=== PATIENT | male | born 1940 | race Caucasian/White ===

== ENCOUNTER 2020-02-22 18:43 | Inpatient (IN) | payer OTHER ==
[~2020-02-22 18:43] MED LIST: Iopamidol-370 76% 500 ML 1 ML ONE
[2020-02-22] MEDS ORDERED: Adacel (T-DAP) 0.5 ML SYRINGE ONE (19:01)
[2020-02-22] MEDS ORDERED: Morphine 4 MG/ML VIAL ONE (19:01)
[2020-02-22] MEDS ORDERED: Lidocaine 1% w/Epinephrine 1:100K 20 ML VIAL ONE (19:03)
[2020-02-22 19:16] LABS: #Basophils 0.1 thou/uL (0.0-0.2); #Eosinphils 0.4 thou/uL (0.0-0.7); #Monocytes 0.8 thou/uL (0.11-0.59); #Neutrophils 14.2 thou/uL (1.40-6.50); %Basophils 0.6 % (0.0-1.0); %Eosinophils 2.2 % (0.0-10.0); %Lymphocytes 11.6 % (21.0-51.0); %Monocytes 4.6 % (0.0-10.0); Hemoglobin 14.7 g/dL (14.0-18.0); Mean Corpuscular HGB CONC 33.2 g/dL (32.0-36.0); Mean Corpuscular Hemoglobin 33.2 pg (27.0-31.0); Mean Platelet Volume 8.3 fL (7.4-10.4); Platelet Count 161 thou/uL (130-400); RBC Distribution Width 12.3 % (11.5-14.5); Red Blood Cell (RBC) Count 4.41 mill/uL (4.70-6.10); White Blood Cell (WBC) Count 17.6 thou/uL (4.8-10.8)
[2020-02-22 19:22] LABS: INR-International Normal Ratio 1.1; PTT 27.7 SEC (22.9-36.1); Prothrombin Time 14.1 SEC (12.0-14.7)
--- NOTE | 2020-02-22 19:22 | RAD ---
Exam: One view pelvis HISTORY: Trauma. Pain. Injury. FINDINGS: Sacroiliac joints are patent and symmetric. Sacral ala are preserved. Intact bony pelvis Symmetric hip joint spaces. Contour of both femoral heads are maintained. Obturator rings are intact. IMPRESSION: No radiographic evidence of fracture.
[2020-02-22 19:24] LABS: ALT (SGPT) 30 U/L (8-55); AST (SGOT) 44 U/L (5-34); Albumin 3.7 g/dL (3.4-4.8); Alkaline Phosphatase 104 U/L (40-110); Anion Gap 16 mmol/L (10-20); BUN (Urea Nitrogen) 30 mg/dL (8.4-25.7); Bilirubin, Total 1.3 mg/dL (0.2-1.2); Calc. Creatinine Clearance 0 mL/min (70-130); Calcium 8.9 mg/dL (7.8-10.44); Carbon Dioxide 16 mmol/L (23-31); Chloride 111 mmol/L (98-107); Estimated GFR-MDRD 20; Globulin 2.9 g/dL (2.4-3.5); Glucose 193 mg/dL (83-110); Potassium 4.4 mmol/L (3.5-5.1); Protein, Total 6.6 g/dL (5.8-8.1); Sodium 139 mmol/L (136-145)
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
[2020-02-22 19:59] LABS: CKMB 19.4 ng/mL (0-6.6)
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
[2020-02-22 20:22] LABS: Bilirubin Negative (Negative); Blood, Urine 2+ (Negative); Clarity Turbid (Clear); Glucose, Urine (Dipstick) 30 mg/dL (Negative); Leukocyte 500 Leu/uL (Negative); Nitrite 2+ (Negative); Protein, Urine (Dipstick) 300 mg/dL (Neg-Trace); RBC/HPF Greater than 50 HPF (0-3); Squamous Epithelial 0-3 HPF (0-3); Urobilinogen Normal mg/dL (Less than 2); WBC/HPF Greater than 50 HPF (0-3)
[2020-02-22 20:23] LABS: Bacteria/HPF 3+ HPF (None Seen)
--- NOTE | 2020-02-22 20:52 | RAD ---
Exam:Right hand 2 views HISTORY: Trauma. Pain. COMPARISON: None FINDINGS: Dorsal soft tissue swelling. Based upon the images provided, no definite fracture. IMPRESSION: Dorsal soft tissue swelling. No definite fracture. Additional imaging if clinically warra nted.
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
[2020-02-22 21:48] LABS: Magnesium 1.7 mg/dL (1.6-2.6); Phosphorus 3.3 mg/dL (2.3-4.7)
[2020-02-22] MEDS ORDERED: Dextrose 5% in Water 1,000 ML IV PRN (22:42)
[2020-02-22] MEDS ORDERED: Morphine 2 MG/ML SYRINGE SLOW IVP PRN (22:42)
[2020-02-22] MEDS ORDERED: Ondansetron PF 4 MG/2 ML Vial IVP PRN (22:42)
[2020-02-22] MEDS ORDERED: Dextrose 50% Abboject 50 ML SYRINGE SLOW IVP PRN (22:42)
[2020-02-22] MEDS ORDERED: Ondansetron ODT 4 MG TAB PO PRN (22:42)
[2020-02-22] MEDS ORDERED: hydrALAZINE 20 MG/ML VIAL SLOW IVP PRN (22:42)
[2020-02-22] MEDS ORDERED: Sodium Chloride 0.9% 1,000 ML IV SCH (23:15)
[2020-02-23 00:11] LABS: CKMB 66.8 ng/mL (0-6.6)
[2020-02-23 00:27] VITALS: BMI 23.1
[2020-02-23 02:58] LABS: #Lymphocytes 0.5 thou/uL (1.20-3.40); #Monocytes 1.1 thou/uL (0.11-0.59); #Neutrophils 17.4 thou/uL (1.40-6.50); %Eosinophils 0.1 % (0.0-10.0); %Lymphocytes 2.5 % (21.0-51.0); %Monocytes 5.9 % (0.0-10.0); %Neutrophils 91.5 % (42.0-75.0); Hemoglobin 12.4 g/dL (14.0-18.0); Mean Corpuscular HGB CONC 32.8 g/dL (32.0-36.0); Mean Corpuscular Hemoglobin 32.3 pg (27.0-31.0); Mean Corpuscular Volume 98.5 fL (78.0-98.0); Mean Platelet Volume 8.1 fL (7.4-10.4); Platelet Count 115 thou/uL (130-400); Platelet Morphology Comment Appears Decreased; RBC Distribution Width 12.3 % (11.5-14.5); Red Blood Cell (RBC) Count 3.86 mill/uL (4.70-6.10)
[2020-02-23 03:03] LABS: Phosphorus 3.3 mg/dL (2.3-4.7)
[2020-02-23 03:04] LABS: Anion Gap 17 mmol/L (10-20); BUN (Urea Nitrogen) 32 mg/dL (8.4-25.7); Calc. Creatinine Clearance 18 mL/min (70-130); Calcium 8.3 mg/dL (7.8-10.44); Carbon Dioxide 18 mmol/L (23-31); Chloride 112 mmol/L (98-107); Estimated GFR-MDRD 19; Glucose 203 mg/dL (83-110); Magnesium 1.6 mg/dL (1.6-2.6); Potassium 4.6 mmol/L (3.5-5.1); Sodium 142 mmol/L (136-145)
[2020-02-23 03:26] LABS: CKMB 62.1 ng/mL (0-6.6); Critical Call CKMB RESULT DECREASING
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
[2020-02-23] MEDS ORDERED: Acetaminophen 500 MG TAB PO SCH (06:45)
[2020-02-23] MEDS ORDERED: Magnesium 2 GM/50 ML 2 GM in Premix Bag 1 BAG IVPB SCH (06:45)
[2020-02-23] MEDS: Famotidine/PF 20 mg/2ml Vial SLOW IVP SCH (07:43)
--- NOTE | 2020-02-23 08:03 | CT ---
PRELIMINARY REPORT/DIRECT RADIOLOGY/EMERGENCY AFTER HOURS PROCEDURE This report was discussed with alan ruth RN by Johan Almanzar on Feb 23, 2020 04:31:00 CDT. Addendum electronically signed by Johan Almanzar on February 23, 2020 4:33:00 AM CDT EXAM: CT Head Without Intravenous Contrast. CLINICAL HISTORY: F/U EVAL ICH TECHNIQUE: Axial computed tomography images of the head/brain without intravenous contrast. COMPARISON: None provided. FINDINGS: BRAIN: Again seen in the small focus of hemorrhage along the left parafalcine region. There is new li near subarachnoid hemorrhage in the right central sulcus and left precentral sulcus (series 2, image [id number]). There are small bilateral extra-axial isodense fluid collections overlying the frontal lobes which ar e new compared to prior. There is no significant midline shift. Stable focus of encephalomalacia in t he right frontal lobe, unchanged from prior. VENTRICLES: There is layering fluid within the occipital horn of the right lateral ventricle which is new compared to prior as well as the previously seen focus of hyperdensity along the body of the rig ht lateral ventricle. ORBITS: Status post bilateral lens replacements SOFT TISSUES: Small extra-axial soft-tissue hematomas overlying the right greater the left frontal hiren marco. BONES: Again seen are fractures of the maxillary sinuses and pterygoid plates with near complete opac ification of the left maxillary sinus and layering fluid in the right maxillary sinus, similar to amber or. Partially imaged nasal bone fractures. IMPRESSION: New small amount of subarachnoid hemorrhage within the right central sulcus and left prec entral sulcus. New small bilateral extra-axial isodense fluid collections overlying the frontal lobes , not seen on the prior CT. Layering fluid within the occipital horn of the right lateral ventricle, new from prior. No hydrocephalus. Previously seen foci of hemorrhage in the left parafalcine region and in the body of the right lateral ventricle are stable from prior. Fractures of the maxillary sinu s, pterygoid plates and nasal bones are unchanged from prior. Near-complete opacification of the lef t maxillary sinus and layering fluid in the right maxillary sinus, similar to prior. ELECTRONICALLY SIGNED BY: Keyla Hernandez MD Feb 23, 2020 4:23:55 AM CDT FINAL REPORT I agree with the preliminary report provided. There has been further development of the subdural hem orrhages overlying the frontal and parietal convexities. Slightly more pronounced subarachnoid hemor rhage is seen within a sulcus of the left and right frontal convexities. There is slightly more pron ounced subdural hematoma within the parafalcine region, near the vertex. A small amount of intravent ricular hemorrhage within the right lateral ventricle adjacent to the right caudate body is stable-ap pearing. There is slightly more layered intraventricular hemorrhage within the posterior horn of the right lateral ventricle. Basilar cisterns remain patent. No midline shift or hydrocephalus is evid ent. Generalized cerebral and cerebellar atrophy with chronic small-vessel white matter ischemic rangel nge is similar-appearing. Comminuted fractures involving the maxilla are similar-appearing. POS: BH
[2020-02-23] MEDS: Carvedilol 3.125 MG TAB PO SCH ×2 (08:07→20:54)
[2020-02-23] MEDS: Multivitamin W/ Minerals 1 TAB PO SCH (08:08)
[2020-02-23 08:34] LABS: CKMB 49.1 ng/mL (0-6.6)
[2020-02-23] MEDS ORDERED: Prevnar 13-Val Conj/PF 0.5 ML SYRINGE IM ONE (09:00)
[2020-02-23] MEDS: Sodium Bicarbonate 150 MEQ in Dextrose 5% in Water 1,000 ML IV SCH ×2 (10:19→20:54)
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
[2020-02-23 11:22] LABS: Troponin I 1.205 ng/mL (< 0.028)
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
[2020-02-23] MEDS: Acetaminophen 500 MG TAB PO SCH ×2 (12:25→18:12)
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
--- NOTE | 2020-02-23 17:19 | PRG ---
DATE OF SERVICE: 02/23/2020 ADDENDUM: ADDITIONAL IMPRESSION: Acute on chronic kidney injury. This may very well have been exacerbated by contrast nephropathy. PLAN: The patient will be started on a bicarbonate infusion and monitor renal function as endpoint. Job ID: [id number]
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
[2020-02-23] MEDS: Bacitracin 1 PK TOP SCH (20:24)
[2020-02-23] MEDS: Sulfameth/Trimethoprim DS 800-160mg TAB PO SCH (20:27)
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
[2020-02-24] MEDS: Acetaminophen 500 MG TAB PO SCH ×4 (00:56→17:36)
[2020-02-24 04:48] LABS: Anion Gap 14 mmol/L (10-20); BUN (Urea Nitrogen) 50 mg/dL (8.4-25.7); CK (CPK) 1238 U/L (30-200); Calc. Creatinine Clearance 16 mL/min (70-130); Carbon Dioxide 22 mmol/L (23-31); Chloride 107 mmol/L (98-107); Estimated GFR-MDRD 17; Glucose 140 mg/dL (83-110); Magnesium 2.2 mg/dL (1.6-2.6); Potassium 4.3 mmol/L (3.5-5.1); Sodium 139 mmol/L (136-145)
[2020-02-24 05:20] LABS: Band 12 % (5-11); Lymphocytes 6 % (21-51); MDiff Complete? YES; Macrocytosis SLIGHT = 6-15 cells (100X) (0-5/hpf); Mean Corpuscular HGB CONC 32.1 g/dL (32.0-36.0); Mean Corpuscular Hemoglobin 31.9 pg (27.0-31.0); Mean Corpuscular Volume 99.3 fL (78.0-98.0); Mean Platelet Volume 8.7 fL (7.4-10.4); Monocytes 3 % (0-10); Neutrophil 79 % (42-75); Platelet Count 92 thou/uL (130-400); Platelet Morphology Comment Appears Decreased; RBC Distribution Width 12.3 % (11.5-14.5); Red Blood Cell (RBC) Count 2.82 mill/uL (4.70-6.10)
[2020-02-24] MEDS: Sodium Bicarbonate 150 MEQ in Dextrose 5% in Water 1,000 ML IV SCH ×2 (07:54→20:53)
[2020-02-24] MEDS: Sulfameth/Trimethoprim DS 800-160mg TAB PO SCH (07:55)
[2020-02-24] MEDS: Famotidine/PF 20 mg/2ml Vial SLOW IVP SCH (07:55)
[2020-02-24] MEDS: Bacitracin 1 PK TOP SCH ×2 (07:55→20:57)
[2020-02-24] MEDS: Carvedilol 3.125 MG TAB PO SCH ×2 (07:55→20:57)
[2020-02-24] MEDS: Multivitamin W/ Minerals 1 TAB PO SCH (07:56)
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
[2020-02-24 14:41] LABS: Hemoglobin 8.8 g/dL (14.0-18.0); Mean Corpuscular HGB CONC 33.1 g/dL (32.0-36.0); Mean Corpuscular Hemoglobin 32.8 pg (27.0-31.0); Mean Corpuscular Volume 99.2 fL (78.0-98.0); Mean Platelet Volume 8.6 fL (7.4-10.4); Platelet Count 90 thou/uL (130-400); RBC Distribution Width 12.3 % (11.5-14.5); Red Blood Cell (RBC) Count 2.67 mill/uL (4.70-6.10); White Blood Cell (WBC) Count 10.6 thou/uL (4.8-10.8)
[2020-02-24 15:04] LABS: Band 10 % (5-11); Lymphocytes 8 % (21-51); MDiff Complete? YES; Monocytes 3 % (0-10); Neutrophil 79 % (42-75)
[2020-02-24 15:07] LABS: Anion Gap 16 mmol/L (10-20); BUN (Urea Nitrogen) 52 mg/dL (8.4-25.7); Calc. Creatinine Clearance 16 mL/min (70-130); Carbon Dioxide 25 mmol/L (23-31); Chloride 103 mmol/L (98-107); Estimated GFR-MDRD 16; Glucose 167 mg/dL (83-110); Magnesium 2.3 mg/dL (1.6-2.6); Phosphorus 3.9 mg/dL (2.3-4.7); Potassium 4.1 mmol/L (3.5-5.1); Sodium 140 mmol/L (136-145)
[2020-02-24] MEDS: Sulfameth/Trimethoprim SS 400-80MG TAB PO SCH (20:57)
[2020-02-25] MEDS: Acetaminophen 500 MG TAB PO SCH ×5 (00:35→23:44)
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
[2020-02-25 04:16] LABS: #Eosinphils 0.4 thou/uL (0.0-0.7); #Lymphocytes 0.8 thou/uL (1.20-3.40); #Monocytes 0.7 thou/uL (0.11-0.59); %Basophils 0.3 % (0.0-1.0); %Eosinophils 4.4 % (0.0-10.0); %Lymphocytes 8.9 % (21.0-51.0); %Monocytes 7.6 % (0.0-10.0); %Neutrophils 78.9 % (42.0-75.0); Hemoglobin 8.1 g/dL (14.0-18.0); Mean Corpuscular HGB CONC 33.6 g/dL (32.0-36.0); Mean Corpuscular Hemoglobin 32.6 pg (27.0-31.0); Mean Platelet Volume 8.7 fL (7.4-10.4); Platelet Count 85 thou/uL (130-400); RBC Distribution Width 12.1 % (11.5-14.5); Red Blood Cell (RBC) Count 2.48 mill/uL (4.70-6.10); White Blood Cell (WBC) Count 8.9 thou/uL (4.8-10.8)
[2020-02-25 04:23] LABS: Anion Gap 13 mmol/L (10-20); BUN (Urea Nitrogen) 50 mg/dL (8.4-25.7); Calc. Creatinine Clearance 16 mL/min (70-130); Calcium 7.8 mg/dL (7.8-10.44); Carbon Dioxide 31 mmol/L (23-31); Chloride 100 mmol/L (98-107); Estimated GFR-MDRD 16; Glucose 160 mg/dL (83-110); Magnesium 2.3 mg/dL (1.6-2.6); Phosphorus 3.6 mg/dL (2.3-4.7); Potassium 3.7 mmol/L (3.5-5.1); Sodium 140 mmol/L (136-145)
[2020-02-25] MEDS: Sodium Bicarbonate 150 MEQ in Dextrose 5% in Water 1,000 ML IV SCH (08:07)
[2020-02-25] MEDS: Sulfameth/Trimethoprim SS 400-80MG TAB PO SCH (08:15)
[2020-02-25] MEDS: Bacitracin 1 PK TOP SCH ×2 (08:15→20:09)
[2020-02-25] MEDS: Carvedilol 3.125 MG TAB PO SCH ×2 (08:15→20:09)
[2020-02-25] MEDS: Famotidine 20 MG TAB PO SCH (08:15)
[2020-02-25] MEDS: Multivitamin W/ Minerals 1 TAB PO SCH (08:15)
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
[2020-02-25 13:40] LABS: Bilirubin Negative (Negative); Blood, Urine 1+ (Negative); Clarity Clear (Clear); Glucose, Urine (Dipstick) Normal (Negative); Leukocyte 500 Leu/uL (Negative); Nitrite Negative (Negative); Protein, Urine (Dipstick) 200 mg/dL (Neg-Trace); Squamous Epithelial None Seen HPF (0-3); Urobilinogen Normal mg/dL (Less than 2); WBC/HPF Greater than 50 HPF (0-3)
[2020-02-25 13:43] LABS: Bacteria/HPF 1+ HPF (None Seen)
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
[2020-02-25] MEDS: Ferrous Sulfate 325 MG TAB PO SCH (17:21)
[2020-02-25] MEDS ORDERED: cefTRIAXone\\ROCEPHIN 1 GM in Sodium Chloride 0.9% 100 ML IVPB SCH (17:30)
[2020-02-25] MEDS: Ascorbic Acid 500 mg Chewable Tablet PO SCH (20:09)
[2020-02-25] MEDS: Tamsulosin HCl 0.4 MG CAP PO SCH (20:09)
[2020-02-25] MEDS: Senokot S 8.6-50 MG TAB PO SCH (20:09)
[2020-02-25] MEDS ORDERED: Tamsulosin HCl 0.4 MG CAP PO SCH (21:00)
[2020-02-26] MEDS ORDERED: Insulin Regular 300 UNITS/3 ML VIAL SC PRN ×2 (01:34)
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
[2020-02-26] MEDS: Acetaminophen 500 MG TAB PO SCH ×4 (05:28→23:37)
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
[2020-02-26 07:38] LABS: Anion Gap 13 mmol/L (10-20); BUN (Urea Nitrogen) 45 mg/dL (8.4-25.7); Calc. Creatinine Clearance 17 mL/min (70-130); Calcium 8.2 mg/dL (7.8-10.44); Carbon Dioxide 31 mmol/L (23-31); Chloride 101 mmol/L (98-107); Estimated GFR-MDRD 17; Glucose 142 mg/dL (83-110); Potassium 3.7 mmol/L (3.5-5.1); Sodium 141 mmol/L (136-145)
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
[2020-02-26] MEDS: Finasteride 5 MG TAB PO SCH (08:41)
[2020-02-26] MEDS: Ascorbic Acid 500 mg Chewable Tablet PO SCH ×2 (08:41→21:15)
[2020-02-26] MEDS: Tamsulosin HCl 0.4 MG CAP PO SCH ×2 (08:41→21:15)
[2020-02-26] MEDS: Multivitamin W/ Minerals 1 TAB PO SCH (08:41)
[2020-02-26] MEDS: Carvedilol 3.125 MG TAB PO SCH ×2 (08:41→21:15)
[2020-02-26] MEDS: Senokot S 8.6-50 MG TAB PO SCH ×2 (08:42→21:15)
[2020-02-26] MEDS: Polyethylene Glycol 3350 17 GM Packet PO SCH (08:43)
[2020-02-26] MEDS: Famotidine 20 MG TAB PO SCH (08:43)
[2020-02-26] MEDS: Gabapentin 100 MG CAP PO PRN (08:43)
[2020-02-26] MEDS: Ferrous Sulfate 325 MG TAB PO SCH ×2 (08:43→17:51)
[2020-02-26] MEDS: traMADol HCl 50 MG TAB PO PRN (08:44)
[2020-02-26] MEDS: Bacitracin 1 PK TOP SCH ×2 (08:45→21:15)
[2020-02-26] MEDS: Heparin 5,000 UNITS/ML VIAL SC SCH ×2 (08:45→21:16)
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
--- NOTE | 2020-02-26 14:15 | EKG ---
Test Reason : Blood Pressure : / mmHG Vent. Rate : 093 BPM Atrial Rate : 093 BPM P-R Int : 194 ms QRS Dur : 112 ms QT Int : 388 ms P-R-T Axes : 066 -61 098 degrees QTc Int : 482 ms Sinus rhythm with Premature atrial complexes Left axis deviation Inferior infarct , age undetermined Anterior infarct , age undetermined Abnormal ECG Confirmed by LUCAS THOMPSON DO ([id number]), assignment desk editor ZULEYMA SONG ([id number]) on 02/26/2020 2:15:25 PM Referred By: Confirmed By:LUCAS THOMPSON DO
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
[2020-02-26] MEDS ORDERED: cefTRIAXone\\ROCEPHIN 1 GM in Sodium Chloride 0.9% 100 ML IVPB SCH ×2 (18:00→20:00)
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
[2020-02-27] MEDS: traMADol HCl 50 MG TAB PO PRN (03:52)
[2020-02-27] MEDS: Acetaminophen 500 MG TAB PO SCH ×4 (05:34→23:28)
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
[2020-02-27] MEDS ORDERED: cefTRIAXone\\ROCEPHIN 1 GM in Sodium Chloride 0.9% 100 ML IVPB SCH (08:30)
[2020-02-27] MEDS ORDERED: Cefdinir 300 MG CAP PO SCH (09:00)
[2020-02-27] MEDS: Ferrous Sulfate 325 MG TAB PO SCH ×2 (09:07→17:35)
[2020-02-27] MEDS: Famotidine 20 MG TAB PO SCH (09:08)
[2020-02-27] MEDS: Multivitamin W/ Minerals 1 TAB PO SCH (09:08)
[2020-02-27] MEDS: Bacitracin 1 PK TOP SCH ×2 (09:08→20:33)
[2020-02-27] MEDS: Ascorbic Acid 500 mg Chewable Tablet PO SCH ×2 (09:08→20:32)
[2020-02-27] MEDS: Cefdinir 300 MG CAP PO SCH (09:10)
[2020-02-27] MEDS: Finasteride 5 MG TAB PO SCH (09:11)
[2020-02-27] MEDS: Gabapentin 100 MG CAP PO PRN (09:11)
[2020-02-27] MEDS: Tamsulosin HCl 0.4 MG CAP PO SCH ×2 (09:11→20:32)
[2020-02-27] MEDS: Polyethylene Glycol 3350 17 GM Packet PO SCH (09:11)
[2020-02-27] MEDS: Senokot S 8.6-50 MG TAB PO SCH ×2 (09:11→20:33)
[2020-02-27] MEDS: Heparin 5,000 UNITS/ML VIAL SC SCH ×2 (09:12→20:33)
[2020-02-27] MEDS: Carvedilol 3.125 MG TAB PO SCH ×2 (09:12→20:33)
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
[2020-02-28 04:54] LABS: #Eosinphils 0.4 thou/uL (0.0-0.7); #Lymphocytes 0.9 thou/uL (1.20-3.40); #Monocytes 0.6 thou/uL (0.11-0.59); #Neutrophils 5.9 thou/uL (1.40-6.50); %Basophils 0.1 % (0.0-1.0); %Eosinophils 4.6 % (0.0-10.0); %Lymphocytes 11.4 % (21.0-51.0); %Monocytes 7.2 % (0.0-10.0); %Neutrophils 76.6 % (42.0-75.0); Hemoglobin 8.5 g/dL (14.0-18.0); Mean Corpuscular HGB CONC 32.5 g/dL (32.0-36.0); Mean Corpuscular Hemoglobin 32.5 pg (27.0-31.0); Mean Platelet Volume 8.9 fL (7.4-10.4); Platelet Count 146 thou/uL (130-400); RBC Distribution Width 12.4 % (11.5-14.5); Red Blood Cell (RBC) Count 2.62 mill/uL (4.70-6.10); White Blood Cell (WBC) Count 7.7 thou/uL (4.8-10.8)
[2020-02-28 05:11] LABS: Phosphorus 2.3 mg/dL (2.3-4.7)
[2020-02-28 05:13] LABS: Anion Gap 12 mmol/L (10-20); BUN (Urea Nitrogen) 52 mg/dL (8.4-25.7); Calc. Creatinine Clearance 18 mL/min (70-130); Calcium 8.6 mg/dL (7.8-10.44); Carbon Dioxide 28 mmol/L (23-31); Chloride 103 mmol/L (98-107); Estimated GFR-MDRD 19; Glucose 157 mg/dL (83-110); Magnesium 2.3 mg/dL (1.6-2.6); Potassium 3.9 mmol/L (3.5-5.1); Sodium 139 mmol/L (136-145)
[2020-02-28] MEDS: Acetaminophen 500 MG TAB PO SCH ×4 (06:12→23:16)
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
[2020-02-28] MEDS: Ferrous Sulfate 325 MG TAB PO SCH ×2 (09:08→18:36)
[2020-02-28] MEDS: Tamsulosin HCl 0.4 MG CAP PO SCH ×2 (09:08→21:21)
[2020-02-28] MEDS: Cefdinir 300 MG CAP PO SCH (09:08)
[2020-02-28] MEDS: Famotidine 20 MG TAB PO SCH (09:08)
[2020-02-28] MEDS: Bacitracin 1 PK TOP SCH ×2 (09:09→21:21)
[2020-02-28] MEDS: Finasteride 5 MG TAB PO SCH (09:09)
[2020-02-28] MEDS: Ascorbic Acid 500 mg Chewable Tablet PO SCH ×2 (09:09→21:22)
[2020-02-28] MEDS: Carvedilol 3.125 MG TAB PO SCH ×2 (09:09→21:21)
[2020-02-28] MEDS: Heparin 5,000 UNITS/ML VIAL SC SCH ×2 (09:09→21:21)
[2020-02-28] MEDS: Senokot S 8.6-50 MG TAB PO SCH ×2 (09:09→21:22)
[2020-02-28] MEDS: Multivitamin W/ Minerals 1 TAB PO SCH (09:09)
[2020-02-28] MEDS: Polyethylene Glycol 3350 17 GM Packet PO SCH (09:10)
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
[2020-02-28] MEDS: Gabapentin 100 MG CAP PO PRN (21:21)
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
[2020-02-29] MEDS: Acetaminophen 500 MG TAB PO SCH ×3 (05:17→18:41)
[2020-02-29 08:04] LABS: Anion Gap 16 mmol/L (10-20); BUN (Urea Nitrogen) 51 mg/dL (8.4-25.7); Calc. Creatinine Clearance 20 mL/min (70-130); Calcium 8.6 mg/dL (7.8-10.44); Carbon Dioxide 23 mmol/L (23-31); Chloride 106 mmol/L (98-107); Estimated GFR-MDRD 22; Glucose 147 mg/dL (83-110); Potassium 4.2 mmol/L (3.5-5.1); Sodium 141 mmol/L (136-145)
[2020-02-29] MEDS: Tamsulosin HCl 0.4 MG CAP PO SCH ×2 (08:12→20:12)
[2020-02-29] MEDS: Ferrous Sulfate 325 MG TAB PO SCH ×2 (08:12→18:40)
[2020-02-29] MEDS: Famotidine 20 MG TAB PO SCH (08:12)
[2020-02-29] MEDS: Finasteride 5 MG TAB PO SCH (08:13)
[2020-02-29] MEDS: Ascorbic Acid 500 mg Chewable Tablet PO SCH ×2 (08:13→20:13)
[2020-02-29] MEDS: Senokot S 8.6-50 MG TAB PO SCH ×2 (08:13→20:13)
[2020-02-29] MEDS: Carvedilol 3.125 MG TAB PO SCH ×2 (08:13→20:13)
[2020-02-29] MEDS: Cefdinir 300 MG CAP PO SCH (08:13)
[2020-02-29] MEDS: Multivitamin W/ Minerals 1 TAB PO SCH (08:13)
[2020-02-29] MEDS: Bacitracin 1 PK TOP SCH ×2 (08:13→20:13)
[2020-02-29] MEDS: Heparin 5,000 UNITS/ML VIAL SC SCH ×2 (08:17→20:13)
[2020-02-29] MEDS: Polyethylene Glycol 3350 17 GM Packet PO SCH (08:17)
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
[2020-02-29] MEDS: Gabapentin 100 MG CAP PO PRN (20:13)
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
[2020-03-01] MEDS: Acetaminophen 500 MG TAB PO SCH ×4 (01:06→17:16)
[2020-03-01 05:54] LABS: Anion Gap 13 mmol/L (10-20); BUN (Urea Nitrogen) 54 mg/dL (8.4-25.7); Calc. Creatinine Clearance 22 mL/min (70-130); Calcium 8.7 mg/dL (7.8-10.44); Carbon Dioxide 25 mmol/L (23-31); Chloride 108 mmol/L (98-107); Estimated GFR-MDRD 23; Glucose 126 mg/dL (83-110); Potassium 3.8 mmol/L (3.5-5.1); Sodium 142 mmol/L (136-145)
[2020-03-01] MEDS: Bacitracin 1 PK TOP SCH ×2 (08:54→21:48)
[2020-03-01] MEDS: Carvedilol 3.125 MG TAB PO SCH ×2 (08:54→21:45)
[2020-03-01] MEDS: Ferrous Sulfate 325 MG TAB PO SCH ×2 (08:54→17:16)
[2020-03-01] MEDS: Heparin 5,000 UNITS/ML VIAL SC SCH ×2 (08:55→21:48)
[2020-03-01] MEDS: Tamsulosin HCl 0.4 MG CAP PO SCH ×2 (08:55→21:44)
[2020-03-01] MEDS: Cefdinir 300 MG CAP PO SCH (08:55)
[2020-03-01] MEDS: Finasteride 5 MG TAB PO SCH (08:57)
[2020-03-01] MEDS: Famotidine 20 MG TAB PO SCH (08:57)
[2020-03-01] MEDS: Senokot S 8.6-50 MG TAB PO SCH ×2 (08:57→21:48)
[2020-03-01] MEDS: Multivitamin W/ Minerals 1 TAB PO SCH (08:57)
[2020-03-01] MEDS: Ascorbic Acid 500 mg Chewable Tablet PO SCH ×2 (08:58→21:45)
[2020-03-01] MEDS: Polyethylene Glycol 3350 17 GM Packet PO SCH (08:59)
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
[2020-03-02] MEDS: Acetaminophen 500 MG TAB PO SCH ×5 (00:26→23:08)
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
[2020-03-02] MEDS: Polyethylene Glycol 3350 17 GM Packet PO SCH (08:46)
[2020-03-02] MEDS: Heparin 5,000 UNITS/ML VIAL SC SCH ×2 (08:47→20:40)
[2020-03-02] MEDS: Bacitracin 1 PK TOP SCH ×2 (08:47→20:40)
[2020-03-02] MEDS: Finasteride 5 MG TAB PO SCH (08:47)
[2020-03-02] MEDS: Famotidine 20 MG TAB PO SCH (08:47)
[2020-03-02] MEDS: Carvedilol 3.125 MG TAB PO SCH ×2 (08:47→20:40)
[2020-03-02] MEDS: Ferrous Sulfate 325 MG TAB PO SCH ×2 (08:47→18:32)
[2020-03-02] MEDS: Cefdinir 300 MG CAP PO SCH (08:48)
[2020-03-02] MEDS: Ascorbic Acid 500 mg Chewable Tablet PO SCH ×2 (08:48→20:40)
[2020-03-02] MEDS: Tamsulosin HCl 0.4 MG CAP PO SCH ×2 (08:48→20:40)
[2020-03-02] MEDS: Senokot S 8.6-50 MG TAB PO SCH ×2 (08:48→20:40)
[2020-03-02] MEDS: Multivitamin W/ Minerals 1 TAB PO SCH (08:48)
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
[2020-03-03] MEDS: Acetaminophen 500 MG TAB PO SCH ×2 (05:00→12:17)
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
[2020-03-03] MEDS: Senokot S 8.6-50 MG TAB PO SCH (10:13)
[2020-03-03] MEDS: Polyethylene Glycol 3350 17 GM Packet PO SCH (10:13)
[2020-03-03] MEDS: Multivitamin W/ Minerals 1 TAB PO SCH (10:13)
[2020-03-03] MEDS: Finasteride 5 MG TAB PO SCH (10:13)
[2020-03-03] MEDS: Famotidine 20 MG TAB PO SCH (10:13)
[2020-03-03] MEDS: Cefdinir 300 MG CAP PO SCH (10:13)
[2020-03-03] MEDS: Ferrous Sulfate 325 MG TAB PO SCH (10:14)
[2020-03-03] MEDS: Ascorbic Acid 500 mg Chewable Tablet PO SCH (10:14)
[2020-03-03] MEDS: Tamsulosin HCl 0.4 MG CAP PO SCH (10:14)
[2020-03-03] MEDS: Heparin 5,000 UNITS/ML VIAL SC SCH (10:14)
[2020-03-03] MEDS: Carvedilol 3.125 MG TAB PO SCH (10:16)
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
[2020-03-03 15:02] VITALS: BP 132/77; TEMP 98.1
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
== END 2020-03-03 18:02 | disposition swing bed (61) | DRG 963 ==
LOC: ERS 18:43 → CCU 23:59 → IMCU/EMU 02-23 12:28 → SURG A 02-25 11:18
PROVIDERS: ADMIT Surgery; ATTEND Surgery
PROC: 0HQ1XZZ Repair Face Skin, External Approach (ICD-10-PCS; principal; 2020-02-22)
DX: S06.6X9A Traumatic subarachnoid hemorrhage with loss of consciousness of unspecified duration, initial encounter (principal); I21.4 Non-ST elevation (NSTEMI) myocardial infarction; S32.591A Other specified fracture of right pubis, initial encounter for closed fracture; N17.0 Acute kidney failure with tubular necrosis; S42.201A Unspecified fracture of upper end of right humerus, initial encounter for closed fracture; I13.0 Hypertensive heart and chronic kidney disease with heart failure and stage 1 through stage 4 chronic kidney disease, or unspecified chronic kidney disease; S05.41XA Penetrating wound of orbit with or without foreign body, right eye, initial encounter; N39.0 Urinary tract infection, site not specified; Z16.24 Resistance to multiple antibiotics; S02.412A LeFort II fracture, initial encounter for closed fracture; R40.2412 Glasgow coma scale score 13-15, at arrival to emergency department; N18.3 Chronic kidney disease, stage 3 (moderate); S01.511A Laceration without foreign body of lip, initial encounter; J44.9 Chronic obstructive pulmonary disease, unspecified; S60.512A Abrasion of left hand, initial encounter; S60.511A Abrasion of right hand, initial encounter; T79.6XXA Traumatic ischemia of muscle, initial encounter; R73.9 Hyperglycemia, unspecified; N40.0 Benign prostatic hyperplasia without lower urinary tract symptoms; I25.5 Ischemic cardiomyopathy; F32.9 Major depressive disorder, single episode, unspecified; R33.9 Retention of urine, unspecified; I45.10 Unspecified right bundle-branch block; T50.8X5A Adverse effect of diagnostic agents, initial encounter; I50.9 Heart failure, unspecified; I25.2 Old myocardial infarction; Z95.5 Presence of coronary angioplasty implant and graft; Z91.010 Allergy to peanuts; V49.9XXA Car occupant (driver) (passenger) injured in unspecified traffic accident, initial encounter; Z86.73 Personal history of transient ischemic attack (TIA), and cerebral infarction without residual deficits; Z87.440 Personal history of urinary (tract) infections; Z87.442 Personal history of urinary calculi; Z95.810 Presence of automatic (implantable) cardiac defibrillator
CPT/HCPCS: 12013; 13152; 36415; 36416; 70450; 70486; 71045; 71260; 72125; 72170; 74177; 80048; 80053; 81001; 81003; 81015; 82533; 82550; 82553; 83605; 83735; 83880; 84100; 84484; 85007; 85025; 85027; 85610; 85730; 86850; 86900; 86901; 87086; 90471; 90715; 93005; 93306; 93798; 93970; 96374; 96375; 99292; G0390; J0690; J0696; J1644; J1815; J2270; J3475; J3490; J7070; Q9967; S0028

== ENCOUNTER 2020-04-15 10:51 | Observation (INO) | payer MEDICARE, OTHER ==
--- NOTE | 2020-04-15 11:35 | RAD ---
EXAM: Single view of the chest HISTORY: Fall with chest pain COMPARISON: 02/22/2020 FINDINGS: Single view of the chest shows a normal sized cardiomediastinal silhouette. The pacemaker is unchanged in position. Increased interstitial markings are stable. There is no evidence of consolidation, mass, or pleural effusion. The bones are unremarkable. IMPRESSION: No evidence of acute cardiopulmonary disease
[2020-04-15 11:53] LABS: #Eosinphils 0.9 thou/uL (0.0-0.7); #Lymphocytes 0.8 thou/uL (1.20-3.40); #Monocytes 0.5 thou/uL (0.11-0.59); #Neutrophils 5.1 thou/uL (1.40-6.50); %Basophils 0.4 % (0.0-1.0); %Eosinophils 12.5 % (0.0-10.0); %Lymphocytes 11.4 % (21.0-51.0); %Monocytes 6.5 % (0.0-10.0); %Neutrophils 69.2 % (42.0-75.0); Hemoglobin 14.4 g/dL (14.0-18.0); Mean Corpuscular HGB CONC 32.3 g/dL (32.0-36.0); Mean Platelet Volume 7.6 fL (7.4-10.4); Platelet Count 155 thou/uL (130-400); RBC Distribution Width 12.6 % (11.5-14.5); Red Blood Cell (RBC) Count 4.36 mill/uL (4.70-6.10); White Blood Cell (WBC) Count 7.4 thou/uL (4.8-10.8)
--- NOTE | 2020-04-15 12:08 | CT ---
EXAM: CT brain without contrast HISTORY: Fall with head trauma COMPARISON: 03/20/2020 TECHNIQUE: Multiple contiguous axial images were obtained and a CT of the brain without contrast. FINDINGS: There is hyperdensity along the left aspect of the tentorium consistent with a small amount of subdural hemorrhage. A small amount of subdural hemorrhage is also seen along the anterior aspect of the left middle cranial fossa. No intraventricular hemorrhage or hydrocephalus is seen. The calvarium and overlying soft tissues are unremarkable. The visualized paranasal sinuses and masto id air cells are well aerated. IMPRESSION: Left subdural hemorrhage as above DONTRELL Bhandari notified of the findings at 12:05 PM on 04/15/2020
[2020-04-15 12:19] LABS: ALT (SGPT) 12 U/L (8-55); AST (SGOT) 20 U/L (5-34); Alkaline Phosphatase 110 U/L (40-110); Anion Gap 15 mmol/L (10-20); BUN (Urea Nitrogen) 50 mg/dL (8.4-25.7); Bilirubin, Total 0.7 mg/dL (0.2-1.2); CK (CPK) 51 U/L (30-200); Calc. Creatinine Clearance 0 mL/min (70-130); Calcium 9.7 mg/dL (7.8-10.44); Carbon Dioxide 25 mmol/L (23-31); Chloride 104 mmol/L (98-107); Estimated GFR-MDRD 25; Globulin 3.2 g/dL (2.4-3.5); Glucose 124 mg/dL (83-110); Potassium 4.8 mmol/L (3.5-5.1); Protein, Total 7.2 g/dL (5.8-8.1); Sodium 139 mmol/L (136-145)
[2020-04-15 12:39] LABS: CKMB 2.1 ng/mL (0-6.6)
[2020-04-15 12:44] LABS: PTT 32.8 sec (22.9-36.1); Prothrombin Time 13.5 sec (12.0-14.7)
[2020-04-15 14:14] LABS: Bacteria/HPF None Seen HPF (None Seen); Bilirubin Negative (Negative); Blood, Urine Negative (Negative); Clarity Clear (Clear); Glucose, Urine (Dipstick) Normal (Negative); Leukocyte 25 Leu/uL (Negative); Nitrite Negative (Negative); Protein, Urine (Dipstick) 200 mg/dL (Neg-Trace); RBC/HPF None Seen HPF (0-3); Squamous Epithelial 0-3 HPF (0-3); Urobilinogen Normal mg/dL (Less than 2)
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
[2020-04-15] MEDS ORDERED: Acetaminophen 325 MG TAB PO PRN (23:43)
[2020-04-16 02:41] LABS: #Eosinphils 1.2 thou/uL (0.0-0.7); #Lymphocytes 1.2 thou/uL (1.20-3.40); #Monocytes 0.8 thou/uL (0.11-0.59); #Neutrophils 5.4 thou/uL (1.40-6.50); %Basophils 0.5 % (0.0-1.0); %Lymphocytes 13.7 % (21.0-51.0); %Monocytes 9.5 % (0.0-10.0); %Neutrophils 62.3 % (42.0-75.0); Hemoglobin 13.4 g/dL (14.0-18.0); Mean Corpuscular HGB CONC 34.1 g/dL (32.0-36.0); Mean Corpuscular Hemoglobin 34.2 pg (27.0-31.0); Mean Platelet Volume 7.7 fL (7.4-10.4); Platelet Count 149 thou/uL (130-400); RBC Distribution Width 12.5 % (11.5-14.5); White Blood Cell (WBC) Count 8.6 thou/uL (4.8-10.8)
[2020-04-16] MEDS ORDERED: Bisacodyl 10 MG SUPP PR PRN (03:00)
[2020-04-16] MEDS ORDERED: cloNIDine 0.1 MG TAB PO PRN (03:00)
[2020-04-16] MEDS ORDERED: Calcium Carbonate 500 MG TAB PO PRN (03:00)
[2020-04-16] MEDS ORDERED: Gabapentin 100 MG CAP PO PRN (03:00)
[2020-04-16 03:07] LABS: Anion Gap 13 mmol/L (10-20); BUN (Urea Nitrogen) 44 mg/dL (8.4-25.7); Calc. Creatinine Clearance 22 mL/min (70-130); Calcium 9.5 mg/dL (7.8-10.44); Carbon Dioxide 24 mmol/L (23-31); Chloride 106 mmol/L (98-107); Estimated GFR-MDRD 27; Glucose 104 mg/dL (83-110); Potassium 4.3 mmol/L (3.5-5.1); Sodium 139 mmol/L (136-145)
[2020-04-16 05:52] LABS: Troponin I 0.038 ng/mL (< 0.028)
[2020-04-16] MEDS: Ascorbic Acid 500 mg Chewable Tablet PO SCH ×3 (05:54→21:02)
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
[2020-04-16] MEDS: Multivit, Therapeutic 1 TAB PO SCH (08:39)
[2020-04-16] MEDS: Tamsulosin HCl 0.4 MG CAP PO SCH ×2 (08:39→21:02)
[2020-04-16] MEDS: Ferrous Sulfate 325 MG TAB PO SCH ×2 (08:39→16:42)
[2020-04-16] MEDS: Carvedilol 3.125 MG TAB PO SCH ×2 (08:39→16:42)
[2020-04-16] MEDS: Polyethylene Glycol 3350 17 GM Packet PO SCH (08:40)
[2020-04-16] MEDS: Finasteride 5 MG TAB PO SCH (08:42)
[2020-04-17] MEDS: Ascorbic Acid 500 mg Chewable Tablet PO SCH ×2 (06:25→14:44)
--- NOTE | 2020-04-17 06:30 | PDOC.FM ---
- Subjective Subjective: Patient was resting comfortably in bed at the time of evaluation. He denied any acute overnight events, to include repeat falls, worsening MCCORMICK, visual disturbances, chest pain or SOB. - Objective Vital Signs & Weight: Vital Signs (12 hours) Temp Pulse Resp BP Pulse Ox 04/17/20 04:44 96.9 F L 60 18 145/73 H 97 04/17/20 00:33 97.9 F 68 20 149/73 H 93 L 04/16/20 19:35 97.4 F L 73 18 131/63 96 Weight Weight 61.734 kg I&O: 04/15/20 04/16/20 04/17/20 06:59 06:59 06:59 Intake Total 240 720 Output Total 150 Balance 240 570 Result Diagrams: 04/17/20 07:33 04/17/20 07:33 Phys Exam - Physical Examination Constitutional: NAD HEENT: moist MMs, sclera anicteric, oral pharynx no lesions Neck: supple, full ROM Respiratory: no wheezing, no rales, no rhonchi, clear to auscultation bilateral Cardiovascular: RRR, no significant murmur, no rub Gastrointestinal: soft, non-tender, no distention, positive bowel sounds Musculoskeletal: no edema, pulses present Neurological: non-focal, moves all 4 limbs Psychiatric: normal affect Skin: no rash Deviation from normal: Hematoma/laceration on right side of forehead Dx/Plan (1) BPH (benign prostatic hyperplasia) Code(s): N40.0 - BENIGN PROSTATIC HYPERPLASIA WITHOUT LOWER URINRY TRACT SYMP Status: Acute (2) CKD (chronic kidney disease) Code(s): N18.9 - CHRONIC KIDNEY DISEASE, UNSPECIFIED Status: Acute (3) Diabetes mellitus Code(s): E11.9 - TYPE 2 DIABETES MELLITUS WITHOUT COMPLICATIONS Status: Acute (4) Elevated troponin Code(s): R79.89 - OTHER SPECIFIED ABNORMAL FINDINGS OF BLOOD CHEMISTRY Status : Acute (5) HTN (hypertension) Code(s): I10 - ESSENTIAL (PRIMARY) HYPERTENSION Status: Acute (6) Subdural hematoma Code(s): S06.5X9A - TRAUM SUBDR HEM W LOC OF UNSP DURATION, INIT Status: Acute (7) Facial fracture Code(s): S02.92XA - UNSP FRACTURE OF FACIAL BONES, INIT FOR CLOS FX Status: Acute (8) Hematoma of right auricular region Code(s): S00.431A - CONTUSION OF RIGHT EAR, INITIAL ENCOUNTER Status: Acute (9) Humeral fracture Code(s): S42.309A - UNSP FRACTURE OF SHAFT OF HUMERUS, UNSP ARM, INIT Status: Acute (10) Pubic bone fracture Code(s): S32.509A - UNSP FRACTURE OF UNSP PUBIS, INIT ENCNTR FOR CLOSED FRACTURE Status: Acute (11) TBI (traumatic brain injury) Code(s): S06.9X9A - UNSP INTRACRANIAL INJURY W LOC OF UNSP DURATION, INIT Status: Acute - Plan Plan: Patient is an 79 y/o male who presents to the ED from [facility] following witness fall from a seated position. 1. Fall - Syncopal vs. Mechanical -Likely Vasovagal - no reported loss of consciousness or cardiopulmonary symptoms -Patient's presentation is concerning in light of recent Sub-Arachnoid Hemorrhage in 01/2020 -CT Brain: Left-sided subdural hematoma -Neurosurg consulted from ED by ED Attending Physician - recommended repeat CT Brain in 4H -Repeat CT Brain: Left-sided subdural hematoma, stable -Will continue to monitor Q4H Neuro Checks and Continuous Cardiac Monitoring -Patient appears stable 2. Elevated Troponins -Possibly due to demand ischemia -Trops: 0.032, 0.040, 0.038 -EKG: NSR w/ RBBB, consistent with most recent EKG performed in 01/2020 -No complaints of chest pain during initial evaluation or repeat evaluations -Will continue to monitor closely 3. CKD -Cr: 2.53 > 2.33 - appears consistent w/ baseline -Will avoid nephrotoxic drugs -Will trend AM Labs 4. BPH - Denies urinary symptoms - possibly contributing factor to #1 5. AAA -Adequate perfusion to lower extremities, w/o noticeable MSK or Cardiac defects 6. HFrEF, EF 20-25% -Will continue to monitor fluid status -Echo performed in 01/2020 - will not repeat 7. DM II -POC and Blood Glucose readings currently at goal -Not currently receiving consistent DM2 medications - will continue Metformin 500 mg PO BID per chart review from most recent admission -Mild SSI -Hypoglycemia Protocol 8. Hx of Constipation -Possibly contributing factor to #1 -PRN Dulcolax 9. HTN -Will contibue home medication regimen 10. Anx/Depression -Will continue home medication regimen 11. 1st degree AV block -Stable - see above Note: Medication from [facility] lists Heparin 5000 BID - currently held Dispo: Patient is currently stable and admitted to the Ortho Floor following a witnessed fall. Cardiopulmonary causes appear unlikely at this point, and mild elevation of Troponins is likely 2/2 demand ischemia following vasovagal event. Will continue to investigate previous charts during hospitalization and plan for DC to SNF in [place], [place]. Expected LOS < 24H. Addendum - Attending - Attending Attestation Date/Time: 04/17/20 [id number] I personally evaluated the patient and discussed the management with Dr. Yoder I agree with the History, Examination, Assessment and Plan documented above with any addition or exceptions noted below - Patient without complaints. Afebrile VSS. A/P: 1) s/p fall - PT working with patient and he needs further work as he is unsafe for independent ambulation. Case management working with family for placmeent. 2) Subdural hemotoma- stable on serial CT. No focal deficits. 3) Cardiomyopathy with AICD- stable; unable to have MRI due to this.
[2020-04-17 07:47] LABS: #Eosinphils 0.9 thou/uL (0.0-0.7); #Monocytes 0.6 thou/uL (0.11-0.59); #Neutrophils 4.4 thou/uL (1.40-6.50); %Basophils 0.6 % (0.0-1.0); %Eosinophils 12.7 % (0.0-10.0); %Lymphocytes 14.1 % (21.0-51.0); %Monocytes 8.4 % (0.0-10.0); %Neutrophils 64.3 % (42.0-75.0); Hemoglobin 13.7 g/dL (14.0-18.0); Mean Corpuscular HGB CONC 33.4 g/dL (32.0-36.0); Mean Corpuscular Hemoglobin 33.7 pg (27.0-31.0); Platelet Count 148 thou/uL (130-400); RBC Distribution Width 12.5 % (11.5-14.5); Red Blood Cell (RBC) Count 4.08 mill/uL (4.70-6.10); White Blood Cell (WBC) Count 6.8 thou/uL (4.8-10.8)
[2020-04-17 08:02] LABS: Anion Gap 13 mmol/L (10-20); BUN (Urea Nitrogen) 36 mg/dL (8.4-25.7); Calc. Creatinine Clearance 22 mL/min (70-130); Calcium 9.5 mg/dL (7.8-10.44); Carbon Dioxide 26 mmol/L (23-31); Chloride 106 mmol/L (98-107); Estimated GFR-MDRD 26; Glucose 134 mg/dL (83-110); Potassium 4.3 mmol/L (3.5-5.1); Sodium 141 mmol/L (136-145)
[2020-04-17] MEDS: Carvedilol 3.125 MG TAB PO SCH ×2 (09:17→17:01)
[2020-04-17] MEDS: Polyethylene Glycol 3350 17 GM Packet PO SCH (09:17)
[2020-04-17] MEDS: Multivit, Therapeutic 1 TAB PO SCH (09:18)
[2020-04-17] MEDS: Tamsulosin HCl 0.4 MG CAP PO SCH (09:18)
[2020-04-17] MEDS: Finasteride 5 MG TAB PO SCH (09:18)
[2020-04-17] MEDS: Ferrous Sulfate 325 MG TAB PO SCH ×2 (09:18→17:01)
[2020-04-17 11:21] VITALS: BP 147/78; TEMP 98.2
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
--- NOTE | 2020-04-18 15:31 | EKG ---
Test Reason : Blood Pressure : / mmHG Vent. Rate : 063 BPM Atrial Rate : 063 BPM P-R Int : 232 ms QRS Dur : 120 ms QT Int : 458 ms P-R-T Axes : -25 110 -67 degrees QTc Int : 468 ms Sinus rhythm with 1st degree A-V block Inferior infarct , age undetermined Anterolateral infarct , age undetermined Abnormal ECG Confirmed by KIRILL VILLARREAL MD ([id number]), publications editor RON MCKEON ([id number]) on 04/18/2020 3:30:49 PM Referred By: Confirmed By:KIRILL VILLARREAL MD
== END 2020-04-17 17:30 ==
LOC: ERS 10:51 → ERHOLD 18:07 → 2NO 22:59 → SJJU 04-17 00:21
PROVIDERS: ADMIT Family Medicine; ATTEND Family Medicine
DX: S06.5X9A Traumatic subdural hemorrhage with loss of consciousness of unspecified duration, initial encounter (principal); I13.0 Hypertensive heart and chronic kidney disease with heart failure and stage 1 through stage 4 chronic kidney disease, or unspecified chronic kidney disease; E11.22 Type 2 diabetes mellitus with diabetic chronic kidney disease; N18.3 Chronic kidney disease, stage 3 (moderate); I50.20 Unspecified systolic (congestive) heart failure; N40.0 Benign prostatic hyperplasia without lower urinary tract symptoms; I71.4 Abdominal aortic aneurysm, without rupture; K59.00 Constipation, unspecified; F41.9 Anxiety disorder, unspecified; F32.9 Major depressive disorder, single episode, unspecified; I44.0 Atrioventricular block, first degree; R79.89 Other specified abnormal findings of blood chemistry; S01.81XA Laceration without foreign body of other part of head, initial encounter; S40.211A Abrasion of right shoulder, initial encounter; S60.512A Abrasion of left hand, initial encounter; I25.10 Atherosclerotic heart disease of native coronary artery without angina pectoris; I25.2 Old myocardial infarction; I42.9 Cardiomyopathy, unspecified; J44.9 Chronic obstructive pulmonary disease, unspecified; K21.9 Gastro-esophageal reflux disease without esophagitis; S02.92XA Unspecified fracture of facial bones, initial encounter for closed fracture; S00.431A Contusion of right ear, initial encounter; S42.309A Unspecified fracture of shaft of humerus, unspecified arm, initial encounter for closed fracture; S32.509A Unspecified fracture of unspecified pubis, initial encounter for closed fracture; S06.9X9A Unspecified intracranial injury with loss of consciousness of unspecified duration, initial encounter; Z86.73 Personal history of transient ischemic attack (TIA), and cerebral infarction without residual deficits; Z79.899 Other long term (current) drug therapy; Z88.0 Allergy status to penicillin; Z95.5 Presence of coronary angioplasty implant and graft; Z95.810 Presence of automatic (implantable) cardiac defibrillator; W18.30XA Fall on same level, unspecified, initial encounter
CPT/HCPCS: 36415; 70450; 71045; 80048; 80053; 81003; 81015; 82550; 82553; 84484; 85025; 85610; 85730; 93005; G0378